=== PATIENT | male | born 1950 ===

== ENCOUNTER 2017-08-08 07:26 | Day surgery (SDC) | payer MEDICARE ==
[2016-12-13 08:31] VITALS: BMI 30.8
[2017-08-08] MEDS ORDERED: Propofol 10 mg/ml Inj (20 ML) ONE ×2 (10:29→10:42)
--- NOTE | 2017-08-08 10:29 | CP.SDSHP ---
Same Day Surgery H & P - History Proposed Procedure: colonoscopy Pre-Op Diagnosis: history of colon cancer - Previous Medical/Surgical History Endocrine/Metabolic: Diabetes - Allergies Allergies: Allergies No Known Allergies Allergy (Verified 08/08/17 08:57) - Physical Exam General Appearance: NAD Vital Signs: Vital Signs 08/08/17 09:00 Temperature 97.9 F Pulse Rate 80 Respiratory 20 Rate Blood Pressure 178/76 H O2 Sat by Pulse 98 Oximetry Mental Status: Alert & Oriented x3 Neuro: WNL Heart: WNL Lungs: WNL GI: WNL - {Optional Preform as Required} Abdomen: WNL - Impression Pt. Evaluated Today:Candidate for Anesthesia & Procedure: Yes - Date & Time Date: 08/08/17 Time: 10:29 Short Stay Discharge - Short Stay Discharge Admitting Diagnosis/Reason for Visit: P/H MALIGNANT NEOPLASM LARGE INTESTINE Disposition: HOME/ ROUTINE
[2017-08-08] MEDS ORDERED: Midazolam 2 MG/2 ML VIAL ONE (10:42)
[2017-08-08 11:18] VITALS: TEMP 98; O2SAT 100
[2017-08-08 12:15] VITALS: BP 108/63; PULSE 61; RESP 11
== END 2017-08-08 12:05 | disposition home or self-care (01) ==
LOC: C.ENDO 07:26
PROVIDERS: ATTEND Internal Medicine Gastroenterology
DX: K57.30 Diverticulosis of large intestine without perforation or abscess without bleeding (principal); D12.5 Benign neoplasm of sigmoid colon; D12.4 Benign neoplasm of descending colon
CPT/HCPCS: 45388; 82948; 88305; J2704; J3010

== ENCOUNTER 2018-08-15 08:51 | Day surgery (SDC) | payer MEDICARE ==
[2018-04-12 11:06] VITALS: BMI 31.5
[2018-08-15] MEDS ORDERED: Lactated Ringer's 500 ML IV ONE ×3 (11:56)
[2018-08-15] MEDS ORDERED: Propofol 10 mg/ml Inj (20 ML) ONE (12:23)
[2018-08-15] MEDS ORDERED: Lidocaine Hydrochloride 5 ML INJ ONE (12:23)
[2018-08-15 13:10] VITALS: TEMP 98.4
[2018-08-15 13:16] VITALS: O2SAT 100
[2018-08-15 13:45] VITALS: PULSE 68; RESP 13
[2018-08-15 13:47] VITALS: BP 123/64
== END 2018-08-15 13:45 | disposition home or self-care (01) ==
LOC: C.ENDO 08:51
PROVIDERS: ATTEND Internal Medicine Gastroenterology
DX: Z12.11 Encounter for screening for malignant neoplasm of colon (principal); Z85.038 Personal history of other malignant neoplasm of large intestine; K57.90 Diverticulosis of intestine, part unspecified, without perforation or abscess without bleeding
CPT/HCPCS: 45380; 82948; 88305; J2704; J7120